=== PATIENT | female | born 1930 | race Caucasian/White ===

== ENCOUNTER → 2016-03-29 | Outpatient (CLI) | payer MEDICARE, BC ==
[~2016-03-29] MED LIST: ASCO500C7 PO; ASPI325T32 PO; MULT-552 PO
--- NOTE | 2016-03-29 14:44 | RADRPT ---
PROCEDURE: XR Knees. CLINICAL INDICATION: Bilateral knee pain. TECHNIQUE: Total of six views. Frontal, oblique, and lateral views of both knees. COMPARISON: Right hip radiographs dated 11/24/2015. FINDINGS: On the right side, there is a total knee arthroplasty. This appears satisfactory with no fracture, dislocation, or loosening. There is a small joint effusion. On the left side, there are degenerative changes with osteophytes arising from all 3 joint compartme nt margins. There is medial and lateral joint compartment narrowing and subarticular sclerosis. There is no lytic or blastic lesion. IMPRESSION: 1. Satisfactory postoperative appearance of the right knee. 2. Moderate degenerative changes of the left knee. RPTAT: QQ .Immanuel Calzada MD, MD Date Time Electronically viewed and signed by .Immanuel Calzada MD, MD on 03/29/2016 14:43 .R/
--- NOTE | 2016-04-03 19:03 | HKNOTE ---
DATE OF SERVICE: 03/29/2016 The patient continues to have pain in her right knee. Her last cortisone injection into the knee wa s on 10/05/2015, which gave her excellent relief. She has severe degenerative osteoarthritis of the left knee and needs a knee replacement, but she declines "because I am too old." The patient also complains of new pain connected with her knee. The pain is over the anterior aspec t of the knee and extending to the lateral side of the knee and radiation down to the ankle. This p ain is a burning pain and is associated with numbness. She has a long history of problems with her lumbar spine, with her lower back, but she has not had any MRI scan of the spine. The patient has v erickson poor balance. PHYSICAL EXAMINATION: Clinically, she has degenerative osteoarthritis of the right knee. BACK: Dynamic pain assessment reveals a pain free range of motion in flexion, extension, lateral be nding, and rotation. Inspection of the spine reveals ____. There is no lumbar paraspinal muscle spas m. The pelvis is level. Facet stress test is negative bilaterally. Palpation of the spine demonstrat es no tenderness of the spinous processes, facet joints, sacroiliac joint, sciatic notch, or posteri or thigh. NEUROLOGIC: Motor examination reveals no muscle deficit in the lower extremities. Deep tendon refle xes in the lower extremities: Right knee jerk plus, left knee jerk plus, right ankle jerk plus, lef t ankle jerk plus. Lasegue and LILIBETH tests are negative. RIGHT KNEE: The right knee shows normal alignment. Active and passive extension is 0 degrees. Activ e and passive flexion is 135 degrees. The medial and lateral collateral ligaments and cruciate ligam ents are intact. Edgar test is negative. There is no effusion, tenderness, scarring, or cysts. The patella tracks normally. There is no tenderness on the articular surface of the patella or in the p atellar groove. The Q angle is normal. 6+ crepitus in the knee and under the patella. DISCUSSION: The patient seems to have a superimposed new problem suggesting a herniated lumbar disk . MANAGEMENT: The patient declined to get an MRI scan of her spine. Under sterile conditions, given injection of 2 mL of Kenalog and 6 mL of 2% lidocaine into her right knee. She is given a prescript ion for Neurontin and Naprosyn and she will be seen again in one month's time for reevaluation. Dictated By: ALIN LAUREANO/FRANCO Conf#: [id number] DID#: [id number]
== END | disposition home or self-care (01) ==
LOC: HKI 13:49
DX: M17.12 Unilateral primary osteoarthritis, left knee (principal)
CPT/HCPCS: 20610; 73562; G0463; J3301

== ENCOUNTER → 2016-07-12 | Outpatient (CLI) | payer MEDICARE, BC ==
--- NOTE | 2016-07-12 20:53 | HKNOTE ---
DATE OF SERVICE: 07/12/2016 HISTORY OF PRESENT ILLNESS: The patient comes in for review of the MRI scan of her lumbar spine. T he patient continues to complain of the same symptoms in her right knee. The pain is worse on getti ng up or down from a chair or at night. She can walk about a half a mile without stopping, without using a cane. She lasted a half mile walk 2 days ago. Her pain is "somewhere under my kneecap." O nce she gets walking, she can keep going. She has difficulty doing stairs. PHYSICAL EXAMINATION RIGHT KNEE: Examination of the right knee, the patient does indeed have some difficulty getting up off a chair and seems to be experiencing pain locally in the knee when doing so. Other than that, t martín knee has no external sign of infection or inflammation. Has a full range of motion without pain. The MRI scan of her lumbar spine obtained on 05/07/[address] Buckley as showing "multile sara Schmorl's nodes. Multilevel degenerative changes with resultant mild central canal narrowing at L1-L2 and L3-L4 levels. Moderate right-sided foraminal narrowing at L5-S1 due to disk osteophyte c omplex." DISCUSSION: The patient is advised that the MRI scan does not show any pathology in the lumbar spin e and might need surgery. She was, however, advised that the symptoms in her knee may still be comi ng from the lumbar spine. The most recent x-rays of her knee show all components to be well-chief controller d to the bone and well-aligned; not the slightest sign of loosening or any other underlying problem. MANAGEMENT: The patient has a pacemaker patient, so she is being sent for a MARS CAT scan of the [facility] knee. [place] She will be called with the results of the CAT scan. Her ce phone #is (____ [phone]. Dictated By: ALIN LAUREANO/FRANCO Conf#: [id number] DID#: [id number]
== END | disposition home or self-care (01) ==
LOC: HKI 11:14
DX: M25.561 Pain in right knee (principal); Z95.0 Presence of cardiac pacemaker